=== PATIENT | female | born 1985 | race Caucasian/White ===

== ENCOUNTER 2016-12-03 15:02 | Emergency (ER) | payer OTHER ==
[2016-12-03 15:10] VITALS: BP 122/67
[2016-12-03] MEDS ORDERED: LIDOCAINE 1% 2 ML VIAL ONE (15:28)
[2016-12-03] MEDS ORDERED: LIDOCAINE 2% 10 ML MDV ONE (15:30)
--- NOTE | 2016-12-03 15:44 | ED Physician Documentation ---
PD HPI UPPER EXT INJURY - Stated complaint Stated Complaint: LT FINGER LAC - Chief complaint Chief Complaint: Laceration - History obtained from History obtained from: Patient - History of Present Illness Location: Left, Finger (index) Type of injury: Laceration Where injury occurred: Home Timing - onset: Today Timing - duration: Hours Improved by: Rest, Immobilization Worsened by: Moving, Palpating Associated symptoms: No: Weakness, Numbness, Tingling, Swelling Similar symptoms before: Has not had sx before Recently seen: Not recently seen - Additonal information Additional information: 31 y/o female cut her finger with pruning sheers and the tip is bleeding Review of Systems Constitutional: denies: Fever Respiratory: denies: Cough GI: denies: Vomiting Skin: reports: Laceration (s) Musculoskeletal: reports: Extremity pain Neurologic: denies: Generalized weakness, Focal weakness, Numbness PD PAST MEDICAL HISTORY - Past Medical History Past Medical History: Yes Cardiovascular: None Respiratory: None Neuro: None Endocrine/Autoimmune: None GI: None 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 : Other HEENT: Chronic hearing loss Psych: None Musculoskeletal: None Derm: None - Past Surgical History Past Surgical History: Yes /RUBBER COMPOUNDER: Dilation and currettage - Present Medications Home Medications: Ambulatory Orders Medication Instructions Recorded Confirmed No Known Home Medications [No 05/25/15 12/03/16 Known Home Medications] - Allergies Allergies/Adverse Reactions: Allergies Allergy/AdvReac Type Severity Reaction Status Date / Time clarithromycin [From Biaxin] Allergy Severe Nausea Verified 12/03/16 15:10 amoxicillin [Amoxicillin] AdvReac Intermediate Rash Verified 12/03/16 15:10 penicillin G AdvReac Intermediate Rash Verified 12/03/16 15:10 - Social History Does the pt smoke?: No Smoking Status: Never smoker Does the pt drink ETOH?: Yes Does the pt have substance abuse?: No - Immunizations Immunizations are current?: Yes - POLST Patient has POLST: No PD ED PE NORMAL - Vitals Vital signs reviewed: Yes (normal ) - General General: No acute distress, Well developed/nourished - HEENT HEENT: Atraumatic, PERRL, EOMI - Respiratory Respiratory: No respiratory distress - Derm Derm: Normal color, Warm and dry, No rash - Extremities Extremities: No deformity, No edema, Other (There is a 2cm flap laceration to the left index fingertip ) - Neuro Neuro: No motor deficit, No sensory deficit - Psych Psych: Normal mood, Normal affect Results - Vitals Vitals: Vital Signs - 24 hr 12/03/16 15:08 Temperature 36.7 C Heart Rate 88 Respiratory 14 Rate Blood Pressure 122/67 O2 Saturation 100 Oxygen O2 Source Room air Procedures - Laceration (location) left index Length in cm: 2 Wound type: Curved, Flap, Clean Neurovascular status: Sensory intact, Motor intact, Vascular intact Anesthesia: Lidocaine 2% Wound Preparation: Hibiclens, Irrigated copiously NS, Wound explored, To the base Skin layer closure: Nylon, Interrupted, Size #-0 - enter number (5-0), Sutures - enter # (3) Other: Patient tolerated well, No complications, Neurovascular intact, Dressing applied PD MEDICAL DECISION MAKING - ED course Complexity details: re-evaluated patient, considered differential, d/w patient ED course: 31 y/o female with a fingertip laceration is sutured. Departure - Departure Disposition: 01 Home, Self Care Clinical Impression: Finger laceration Qualifiers: Encounter type: initial encounter Qualified Code(s): S61.219A - Laceration without foreign body of unspecified finger without damage to nail, initial encounter Condition: Stable Instructions: ED Laceration Hand Follow-Up: Alejandra Velázquez MD [Primary Care Provider] -
== END 2016-12-03 15:57 | disposition home or self-care (01) ==
LOC: ED 15:02
DX: S61.211A Laceration without foreign body of left index finger without damage to nail, initial encounter (principal); W27.1XXA Contact with garden tool, initial encounter; Y93.H2 Activity, gardening and landscaping; Y92.017 Garden or yard in single-family (private) house as the place of occurrence of the external cause
CPT/HCPCS: 12001; 99282; 99283

== ENCOUNTER 2017-03-28 09:27 | Emergency (ER) | payer OTHER ==
[2017-03-28 09:37] VITALS: BP 127/85
[2017-03-28] MEDS ORDERED: DEXAMETHASONE 10 MG/ML VIAL PO STA (10:01)
--- NOTE | 2017-03-28 10:12 | ED Physician Documentation ---
PD HPI SKIN - Stated complaint Stated Complaint: ALLERGIC REACTION - Chief complaint Chief Complaint: Allergic Rx - History obtained from History obtained from: Patient - History of Present Illness Timing - onset: Yesterday Timing - duration: Days (1) Timing - details: Gradual onset, Still present Location: Bodywide Quality / character: Itchy, Discolored Associated symptoms: Headache. No: Fever, Myalgias, Joint pain, Dyspnea Contributing factors: Exposed to medication Similar symptoms before: Has not had sx before Recently seen: Not recently seen - Additional information Additional information: 31-year-old female has developed some hives last night. She has noticed that she had some itching in her scalp where she has been using some minoxidil. She had been using this for several days stopped using it when she developed a headache and she used it again last night and awoke with hives today. She is not having difficulty breathing. 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 : Other HEENT: Chronic hearing loss Psych: None Musculoskeletal: None Derm: None - Past Surgical History Past Surgical History: Yes /PRESSURE CONTROLLER: Dilation and currettage - Present Medications Home Medications: Ambulatory Orders Medication Instructions Recorded Confirmed No Known Home Medications [No 05/25/15 12/03/16 Known Home Medications] - Allergies Allergies/Adverse Reactions: Allergies Allergy/AdvReac Type Severity Reaction Status Date / Time clarithromycin [From Biaxin] Allergy Severe Nausea Verified 03/28/17 09:37 minoxidil Allergy Hives Verified 03/28/17 09:38 amoxicillin [Amoxicillin] AdvReac Intermediate Rash Verified 03/28/17 09:37 penicillin G AdvReac Intermediate Rash Verified 03/28/17 09:37 - Social History Does the pt smoke?: No Smoking Status: Never smoker Does the pt drink ETOH?: Yes Does the pt have substance abuse?: No - Immunizations Immunizations are current?: Yes - POLST Patient has POLST: No PD ED PE NORMAL - Vitals Vital signs reviewed: Yes (hypertensive mild ) - General General: Alert and oriented X 3, No acute distress, Well developed/nourished - HEENT HEENT: Atraumatic, PERRL, EOMI, Other (Over the bitemporal areas with the patient has been using the minoxidil there is a superficial plaques in the scalp. Consistent with a contact dermatitis.) - Neck Neck: Supple, no meningeal sign, No bony TTP - Cardiac Cardiac: RRR, No murmur - Respiratory Respiratory: No respiratory distress, Clear bilaterally - Derm Derm: Normal color, Warm and dry, Other (There are several urticarial spots scattered about the patient's body.) - Extremities Extremities: No deformity, No edema - Neuro Neuro: No motor deficit, No sensory deficit - Psych Psych: Normal mood, Normal affect Results - Vitals Vitals: Vital Signs - 24 hr 03/28/17 09:34 Temperature 37.1 C Heart Rate 86 Respiratory 16 Rate Blood Pressure 127/85 H O2 Saturation 100 Oxygen O2 Source Room air PD MEDICAL DECISION MAKING - ED course Complexity details: considered differential, d/w patient ED course: 31-year-old female using Rogaine for the first time has used it for several days now has developed hives. She is instructed to discontinue its use and she is given dexamethasone 10 mg orally here and she is instructed to use Aicha or Zyrtec for the next 2 days. Departure - Departure Disposition: 01 Home, Self Care Clinical Impression: Allergic urticaria Condition: Stable Instructions: ED Urticaria, ED Drug React Allergic Follow-Up: Melissa Sorensen ARNP [Primary Care Provider] - Comments: Today it does not appear that you have reacted to the minoxidil he been putting anterior scalp. Discontinue the use of the minoxidil and take Zyrtec or Aicha for the next 2 days. Expect resolution of the hives over the next 12 hours.
[2017-03-28] MEDS ORDERED: DEXAMETHASONE 10 MG/ML VIAL ONE (10:15)
[2017-03-28] MEDS ORDERED: CHERRY SYRUP 10 ML UDC PO ONE (10:15)
== END 2017-03-28 10:28 | disposition home or self-care (01) ==
LOC: ED 09:27
DX: L50.0 Allergic urticaria (principal)
CPT/HCPCS: 99283; A9270

== ENCOUNTER 2017-08-28 16:29 | Emergency (ER) | payer OTHER ==
[2017-08-28] MEDS ORDERED: TETANUS/DIPHTHERIA/PERTUSSIS 0.5 ML SYRINGE IM ONE (18:21)
[2017-08-28 18:24] VITALS: BP 119/66
--- NOTE | 2017-08-28 18:28 | ED Physician Documentation ---
History of Present Illness - Stated complaint Stated Complaint: FINGER LAC - Chief complaint Chief Complaint: Laceration - History obtained from History obtained from: Patient, Family - History of Present Illness Timing: Today Pain level max: 0 Pain level now: 0 Improved by: nothing Worsened by: nothing - Additonal information Additional information: L thumb laceration with a new knife today at home while trimming corned beef. pt is right handed. 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 : Other HEENT: Chronic hearing loss Psych: None Musculoskeletal: None Derm: None - Past Surgical History Past Surgical History: Yes /CONTRACT LAW SPECIALIST: Dilation and currettage - Present Medications Home Medications: Ambulatory Orders Medication Instructions Recorded Confirmed Multivitamin [Multiple Vitamins] 1 each PO 08/28/17 - Allergies Allergies/Adverse Reactions: Allergies Allergy/AdvReac Type Severity Reaction Status Date / Time clarithromycin [From Biaxin] Allergy Severe Nausea Verified 08/28/17 16:42 minoxidil Allergy Hives Verified 08/28/17 16:42 amoxicillin [Amoxicillin] AdvReac Intermediate Rash Verified 08/28/17 16:42 penicillin G AdvReac Intermediate Rash Verified 08/28/17 16:42 - Social History Does the pt smoke?: No Smoking Status: Never smoker Does the pt drink ETOH?: Yes Does the pt have substance abuse?: No - Immunizations Immunizations are current?: Yes - POLST Patient has POLST: No PD ED PE NORMAL - Vitals Vital signs reviewed: Yes - General General: Alert and oriented X 3, No acute distress - Derm Derm: Warm and dry - Extremities Extremities: Other (L thumb - 1cm, superficial laceration to distal phalanx on pad. NVI. tendon intact. no bleeding. ) - Neuro Neuro: Alert and oriented X 3 - Psych Psych: Normal mood, Normal affect Results - Vitals Vitals: Vital Signs - 24 hr 08/28/17 08/28/17 16:40 18:23 Temperature 37.2 C 37.9 C H Heart Rate 84 78 Respiratory 16 17 Rate Blood Pressure 122/62 119/66 O2 Saturation 98 100 Oxygen O2 Source Room air Procedures - Laceration (location) L thumb Length in cm: 1 Wound type: Linear, Clean Neurovascular status: Sensory intact, Motor intact, Vascular intact Tendon involvement: Tendon intact Wound Preparation: Irrigated copiously NS, Wound explored. No: FB identified Skin layer closure: Dermabond Other: Patient tolerated well, No complications, Neurovascular intact, Dressing applied, Tetanus UTD (tdap) Complexity: Simple PD MEDICAL DECISION MAKING - ED course Complexity details: considered differential, d/w patient ED course: Patient is a 32-year-old female who presents to the emergency department with left thumb laceration. Repaired with Dermabond. Tolerated well. Tdap given. Placed in a splint for comfort. Warnings of infection and instructions on wound care given at bedside. Also counseled on how to minimize scarring. Patient and family counseled regarding signs and symptoms for which I believe and urgent re-evaluation would be necessary. Patient with good understanding of and agreement to plan and is comfortable going home at this time This document was made in part using voice recognition software. While efforts are made to proofread this document, sound alike and grammatical errors may occur. Departure - Departure Disposition: 01 Home, Self Care Clinical Impression: Finger laceration Qualifiers: Encounter type: initial encounter Finger: thumb Damage to nail status: without damage Foreign body presence: without foreign body Laterality: left Qualified Code(s): S61.012A - Laceration without foreign body of left thumb without damage to nail, initial encounter Condition: Good Instructions: ED Laceration Hand Follow-Up: MATT GUZMAN PA-C [Primary Care Provider] - Within 1 week (for wound check) Comments: Wear the splint for the next 2-3 days. Return if you worsen. Discharge Date/Time: 08/28/17 18:59
== END 2017-08-28 18:59 | disposition home or self-care (01) ==
LOC: ED 16:29
DX: S61.012A Laceration without foreign body of left thumb without damage to nail, initial encounter (principal); W26.0XXA Contact with knife, initial encounter; Y93.G1 Activity, food preparation and clean up; Y92.000 Kitchen of unspecified non-institutional (private) residence as the place of occurrence of the external cause; Z23 Encounter for immunization
CPT/HCPCS: 12001; 90471; 99283

== ENCOUNTER 2017-11-02 12:32 | Outpatient (CLI) | payer OTHER | END 2017-11-02 12:33 | disposition critical access hospital (66) | LOC: EMS 12:32 | PROVIDERS: ATTEND Surgery | DX: S61.512A Laceration without foreign body of left wrist, initial encounter (principal); W25.XXXA Contact with sharp glass, initial encounter; Y93.E9 Activity, other interior property and clothing maintenance; Y92.009 Unspecified place in unspecified non-institutional (private) residence as the place of occurrence of the external cause | CPT/HCPCS: A0425; A0429 ==

== ENCOUNTER 2017-11-02 12:52 | Emergency (ER) | payer OTHER ==
[2017-11-02 12:54] VITALS: BP 143/68
--- NOTE | 2017-11-02 12:54 | ED Physician Documentation ---
PD HPI UPPER EXT INJURY - Stated complaint Stated Complaint: WRIST LAC - Chief complaint Chief Complaint: Laceration - History obtained from History obtained from: Patient - History of Present Illness Location: Left, Wrist Type of injury: Laceration (broken glass in trash. she had injured her finger when the cooking dish broke initially and then she put it in the trash, now cut herself on the broken piece taking the trash out so is very upsetting to her.) Where injury occurred: Home Timing - onset: Today Timing - details: Abrupt onset, Still present Worsened by: Palpating. No: Moving Associated symptoms: Numbness (she says she had some numbness in the index/ thumb but it was wrapped tightly. Tingling improving as wrapping is off.). 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: Dilation and currettage - Present Medications Home Medications: Ambulatory Orders Medication Instructions Recorded Confirmed Multivitamin [Multiple Vitamins] 1 each PO 08/28/17 - Allergies Allergies/Adverse Reactions: Allergies Allergy/AdvReac Type Severity Reaction Status Date / Time clarithromycin [From Biaxin] Allergy Severe Nausea Verified 11/02/17 12:54 minoxidil Allergy Hives Verified 11/02/17 12:54 amoxicillin [Amoxicillin] AdvReac Intermediate Rash Verified 11/02/17 12:54 penicillin G AdvReac Intermediate Rash Verified 11/02/17 12:54 - Social History Does the pt smoke?: No Smoking Status: Never smoker Does the pt drink ETOH?: Yes Does the pt have substance abuse?: No - Immunizations Immunizations are current?: Yes - POLST Patient has POLST: No PD ED PE NORMAL - Vitals Vital signs reviewed: Yes - General General: Alert and oriented X 3, Well developed/nourished, Other (anxious and tearful) - Derm Derm: Normal color, Warm and dry - Extremities Extremities: Other (left wrist anteriorly with abrasion then to laceration. No tendons involved and not deep enough to appear to go to nerves. ) - Neuro Neuro: No motor deficit, No sensory deficit Results - Vitals Vitals: Vital Signs - 24 hr 11/02/17 12:50 Temperature 37 C Heart Rate 107 H Respiratory 20 Rate Blood Pressure 143/68 H O2 Saturation 99 Oxygen O2 Source Room air Procedures - Laceration (location) left wrist Length in cm: 2.6 Wound type: Linear, Into subcut fat, Clean. No: Into muscle Neurovascular status: Motor intact, Vascular intact. No: Sensory intact (she says feelis numbness in palm and index/thumb, but has sensation to touch in those areas. Lac does not appear deep enough for nerve injury.) Tendon involvement: No: Tendon intact Anesthesia: Lidocaine 1% with epi Wound Preparation: Irrigated copiously NS, Wound explored, To the base. No: FB identified Skin layer closure: Nylon, Running, Size #-0 - enter number (5), Sutures - enter # (8) Other: Patient tolerated well, No complications, Dressing applied, Tetanus UTD Complexity: Simple PD MEDICAL DECISION MAKING - ED course Complexity details: considered differential (very anxious and tearful. The lac itslef is not too big nor deep. No deep structures involved. She tells the story of the injury as accidental. ), d/w patient Departure - Departure Disposition: 01 Home, Self Care Clinical Impression: Laceration of wrist, left Qualifiers: Encounter type: initial encounter Qualified Code(s): S61.512A - Laceration without foreign body of left wrist, initial encounter Condition: Stable Record reviewed to determine appropriate education?: Yes Instructions: ED Laceration Hand Follow-Up: MATT GUZMAN PA-C [Primary Care Provider] - Comments: It is okay to wash and shower. Clean off the wound twice a day with soap and water, or peroxide and water. Apply some antibiotic ointment to it to keep it moist. Also to watch for signs of infection such as purulence, redness or increasing pain. Return to your primary care or the ER at the specified time for suture removal. Suture removal 8-10 days. Tylenol or ibuprofen if needed for pains. Normal use of the hand is okay. Discharge Date/Time: 11/02/17 13:29
== END 2017-11-02 13:29 | disposition home or self-care (01) ==
LOC: ED 12:52
DX: S61.512A Laceration without foreign body of left wrist, initial encounter (principal); W25.XXXA Contact with sharp glass, initial encounter
CPT/HCPCS: 12001; 99282; 99283

== ENCOUNTER 2017-11-07 13:23 | Emergency (ER) | payer OTHER ==
[2017-11-07 13:29] VITALS: BP 120/67
--- NOTE | 2017-11-07 13:37 | ED Physician Documentation ---
PD HPI WOUND RECHECK - Stated complaint Stated Complaint: SUTURE REMOVAL - Chief complaint Chief Complaint: Wound - Histroy obtained from History obtained from: Patient - History of Present Illness Location: Other (L wrist) Timing - onset: How many days ago (5) Pain level max: 0 Pain level now: 0 Associated symptoms: No: Fever, Redness, Swelling, Drainage, Pain Recently seen: Emergency Dept (sutures placed 5 days ago. 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: Dilation and currettage - Present Medications Home Medications: Ambulatory Orders Medication Instructions Recorded Confirmed Multivitamin [Multiple Vitamins] 1 each PO 08/28/17 - Allergies Allergies/Adverse Reactions: Allergies Allergy/AdvReac Type Severity Reaction Status Date / Time clarithromycin [From Biaxin] Allergy Severe Nausea Verified 11/07/17 13:29 minoxidil Allergy Hives Verified 11/07/17 13:29 amoxicillin [Amoxicillin] AdvReac Intermediate Rash Verified 11/07/17 13:29 penicillin G AdvReac Intermediate Rash Verified 11/07/17 13:29 - Social History Does the pt smoke?: No Smoking Status: Never smoker Does the pt drink ETOH?: Yes Does the pt have substance abuse?: No - Immunizations Immunizations are current?: Yes - POLST Patient has POLST: No PD ED PE NORMAL - Vitals Vital signs reviewed: Yes - General General: Alert and oriented X 3, No acute distress - Derm Derm: Warm and dry - Extremities Extremities: Other (L wrist - well healed laceration. Sutures in place without signs of infection. ) - Neuro Neuro: Alert and oriented X 3 Results - Vitals Vitals: Vital Signs - 24 hr 11/07/17 13:27 Temperature 36.4 C L Heart Rate 66 Respiratory 16 Rate Blood Pressure 120/67 O2 Saturation 100 Oxygen O2 Source Room air PD MEDICAL DECISION MAKING - ED course Complexity details: reviewed old records (last ED visit), considered differential, d/w patient ED course: Patient is a 32-year-old female who presents to the emergency department requesting suture removal from a laceration several days ago. Appears well- healed. Sutures are removed. No signs of infection. Possible slight wound dehiscence, so dermabond applied for extra support to the healing tissue. Patient counseled regarding signs and symptoms for which I believe and urgent re -evaluation would be necessary. Patient with good understanding of and agreement to plan and is comfortable going home at this time This document was made in part using voice recognition software. While efforts are made to proofread this document, sound alike and grammatical errors may occur. Departure - Departure Disposition: 01 Home, Self Care Clinical Impression: Visit for suture removal Condition: Good Instructions: ED Wound Check Sutr Remove No Infec Follow-Up: MATT GUZMAN PA-C [Primary Care Provider] - As Needed Comments: Keep the wound clean. Return if you worsen. Discharge Date/Time: 11/07/17 13:47
== END 2017-11-07 13:47 | disposition home or self-care (01) ==
LOC: ED 13:23
DX: S61.512D Laceration without foreign body of left wrist, subsequent encounter (principal); X58.XXXD Exposure to other specified factors, subsequent encounter
CPT/HCPCS: 99282

== ENCOUNTER 2018-11-13 08:59 | Emergency (ER) | payer OTHER ==
[2018-11-13 09:08] VITALS: BP 109/80
[2018-11-13] MEDS ORDERED: predniSONE 20 MG TABLET PO STA (09:21)
--- NOTE | 2018-11-13 09:27 | ED Physician Documentation ---
PD HPI SKIN - Stated complaint Stated Complaint: RASH ALL OVER - Chief complaint Chief Complaint: Wound - History obtained from History obtained from: Patient - History of Present Illness Timing - onset: Yesterday Timing - duration: Days (2) Timing - details: Gradual onset Pain level max: 0 Pain level now: 0 Location: Bodywide Quality / character: Itchy Improved by: Other (aicha) Worsened by (comment): COMMENT (nothing) Associated symptoms: No: Fever, Myalgias, Joint pain, Headache, Facial swelling, Dyspnea, Abd pain, N/V/D, Urinary sx Contributing factors: Other (sunscreen) Recently seen: Not recently seen Review of Systems Constitutional: denies: Fever, Chills Throat: denies: Sore throat Cardiac: denies: Chest pain / pressure Respiratory: denies: Dyspnea, Cough GI: denies: Nausea, Vomiting, Diarrhea : denies: Now EGA PD PAST MEDICAL HISTORY - Past Medical History Cardiovascular: None Respiratory: None Endocrine/Autoimmune: None GI: None 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 : Other HEENT: Chronic hearing loss Psych: None Musculoskeletal: None Derm: None - Past Surgical History Past Surgical History: Yes /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: Dilation and currettage - Present Medications Home Medications: Ambulatory Orders Medication Instructions Recorded Confirmed Multivitamin [Multiple Vitamins] 1 each PO 08/28/17 Fexofenadine HCl [Aicha Allergy] 60 mg PO 11/13/18 Fluticasone [Flonase] 11/13/18 predniSONE [Prednisone] 40 mg PO DAILY #10 tablet 11/13/18 - Allergies Allergies/Adverse Reactions: Allergies Allergy/AdvReac Type Severity Reaction Status Date / Time clarithromycin [From Biaxin] Allergy Severe Nausea Verified 11/13/18 09:08 minoxidil Allergy Hives Verified 11/13/18 09:08 amoxicillin [Amoxicillin] AdvReac Intermediate Rash Verified 11/13/18 09:08 penicillin G AdvReac Intermediate Rash Verified 11/13/18 09:08 - Social History Does the pt smoke?: No Smoking Status: Never smoker Does the pt drink ETOH?: Yes Does the pt have substance abuse?: No - Immunizations Immunizations are current?: Yes - POLST Patient has POLST: No PD ED PE NORMAL - Vitals Vital signs reviewed: Yes - General General: Alert and oriented X 3, No acute distress - HEENT HEENT: Moist mucous membranes - Neck Neck: Supple, no meningeal sign - Derm Derm: Warm and dry, Other (Diffuse urticarial exanthem over the upper extremities, back, neck and face. Blanches easily) - Neuro Neuro: Alert and oriented X 3 - Psych Psych: Normal mood, Normal affect Results - Vitals Vitals: Vital Signs - 24 hr 11/13/18 09:04 Temperature 36.6 C Heart Rate 70 Respiratory 16 Rate Blood Pressure 109/80 O2 Saturation 100 Oxygen O2 Source Room air PD MEDICAL DECISION MAKING - ED course Complexity details: considered differential, d/w patient ED course: 33-year-old female with what appears to be an allergic reaction to sunscreen. Will place on prednisone and follow-up with her doctor. She is well-appearing, nontoxic. Afebrile. No hypoxia. No respiratory distress. No stridor or wheezing. Patient counseled regarding signs and symptoms for which I believe and urgent re-evaluation would be necessary. Patient with good understanding of and agreement to plan and is comfortable going home at this time This document was made in part using voice recognition software. While efforts are made to proofread this document, sound alike and grammatical errors may occur. Departure - Departure Disposition: 01 Home, Self Care Clinical Impression: Dermatitis Condition: Good Instructions: ED Dermatitis Contact Follow-Up: ANITRA PHILLIPS [Primary Care Provider] - Within 1 week Prescriptions: predniSONE [Prednisone] 40 mg PO DAILY #10 tablet Comments: Use the steroids as prescribed. Return if you worsen. Follow-up with your doctor for further care.
== END 2018-11-13 09:51 | disposition home or self-care (01) ==
LOC: ED 08:59
DX: L30.9 Dermatitis, unspecified (principal)
CPT/HCPCS: 99283; J7512

== ENCOUNTER 2018-11-14 07:27 | Emergency (ER) | payer OTHER ==
[2018-11-14 07:32] VITALS: BP 120/83
[2018-11-14] MEDS ORDERED: hydrOXYzine PAMOATE 25 MG CAPSULE PO STA (07:41)
--- NOTE | 2018-11-14 07:46 | ED Physician Documentation ---
PD HPI SKIN - Stated complaint Stated Complaint: RASH ALL OVER - Chief complaint Chief Complaint: Wound - History obtained from History obtained from: Patient - History of Present Illness Timing - onset: Other (few days ago) Timing - duration: Days Timing - details: Gradual onset Location: Chest, Back, RUE, LUE, RLE, LLE, Bodywide Quality / character: Itchy, Raised, Other (red) Improved by: Other (nothing, hasn't tried benadryl, is taking prednisone) Associated symptoms: No: Fever, Myalgias, Joint pain, Headache, Facial swelling, Dyspnea, Abd pain, N/V/D Contributing factors: Exposed to soap / lotion (sunscreen) Similar symptoms before: No diagnosis Recently seen: Emergency Dept (yesterday for the same symptoms and was given prednisone) Review of Systems Ten Systems: 10 systems reviewed and negative Constitutional: denies: Fever Throat: reports: Other (reports itchy sensation in throat, no swelling). denies: Sore throat Respiratory: denies: Dyspnea, Cough, Wheezing GI: denies: Abdominal Pain, Nausea, Vomiting Skin: reports: Rash (itching) Musculoskeletal: denies: Joint pain PD PAST MEDICAL HISTORY - Past Medical History Past Medical History: Yes Cardiovascular: None Respiratory: None Endocrine/Autoimmune: None GI: None READING AIDE: None : Other HEENT: Chronic hearing loss Psych: None Musculoskeletal: None Derm: None - Past Surgical History Past Surgical History: Yes /READING AIDE: Dilation and currettage - Present Medications Home Medications: Ambulatory Orders Medication Instructions Recorded Confirmed Multivitamin [Multiple Vitamins] 1 each PO 08/28/17 Fexofenadine HCl [Aicha Allergy] 60 mg PO 11/13/18 Fluticasone [Flonase] 11/13/18 predniSONE [Prednisone] 40 mg PO DAILY #10 tablet 11/13/18 Triamcinolone 0.5% Cream [Kenalog 10 gm TOP BID 5 Days #60 g 11/14/18 0.5% Cream] hydrOXYzine pamoate [Hydroxyzine 25 mg PO Q4HR PRN 5 Days #20 11/14/18 Pamoate] capsule - Allergies Allergies/Adverse Reactions: Allergies Allergy/AdvReac Type Severity Reaction Status Date / Time clarithromycin [From Biaxin] Allergy Severe Nausea Verified 11/14/18 07:32 minoxidil Allergy Hives Verified 11/14/18 07:32 amoxicillin [Amoxicillin] AdvReac Intermediate Rash Verified 11/14/18 07:32 penicillin G AdvReac Intermediate Rash Verified 11/14/18 07:32 - Social History Does the pt smoke?: No Smoking Status: Never smoker Does the pt drink ETOH?: Yes Does the pt have substance abuse?: No - Immunizations Immunizations are current?: Yes - POLST Patient has POLST: No PD ED PE NORMAL - Vitals Vital signs reviewed: Yes - General General: Alert and oriented X 3 - HEENT HEENT: Atraumatic, Moist mucous membranes, Pharynx benign, Other (no swelling) - Neck Neck: Supple, no meningeal sign - Cardiac Cardiac: RRR - Respiratory Respiratory: No respiratory distress - Abdomen Abdomen: Non distended - Female Female : Deferred - Rectal Rectal: Deferred - Derm Derm: Warm and dry, Other (diffuse nonspecific erythematous rash with areas of possible urticaria, blanching, not sloughing) - Extremities Extremities: No deformity, No tenderness to palpate - Neuro Neuro: Alert and oriented X 3 Eye Opening: Spontaneous Motor: Obeys Commands Verbal: Oriented GCS Score: 15 Results - Vitals Vitals: Vital Signs - 24 hr 11/14/18 11/14/18 07:30 07:51 Temperature 37.0 C Heart Rate 91 Respiratory 18 18 Rate Blood Pressure 120/83 H O2 Saturation 100 Oxygen O2 Source Room air PD MEDICAL DECISION MAKING - ED course Complexity details: reviewed old records, considered differential, d/w patient ED course: 33 y/o F well appearing with an itchy nonspecific red scattered rash on her trunk and legs/arms, mild appearing, blanching. Pt with no fever, no angioedema, no respiratory or GI symptoms to suggest anaphylaxis. Possibly this is due to a recent use of a new sunscreen. Advised pt to try benadryl or prescribed atarax for symptoms of itching as well as triamcinolone cream. Departure - Departure Disposition: 01 Home, Self Care Clinical Impression: Urticaria, Rash and nonspecific skin eruption Condition: Stable Record reviewed to determine appropriate education?: Yes Follow-Up: ANITRA PHILLIPS [Primary Care Provider] - As Needed Prescriptions: hydrOXYzine pamoate [Hydroxyzine Pamoate] 25 mg PO Q4HR PRN 5 Days #20 capsule PRN Reason: Itching Triamcinolone 0.5% Cream [Kenalog 0.5% Cream] 10 gm TOP BID 5 Days #60 g Print Language: Luxembourger Comments: Follow up with your primary doctor if this is not better in a week. Take oral benadryl or the prescribed hydroxyzine every 4-6 hours as needed for itching. Apply the steroid cream (triamcinolone) twice a day. You can also purchase OTC benadryl gel and apply that as needed for severe itching. Return to the ED if any difficulty breathing, swallowing occurs as this could be a sign of angioedema or anaphylaxis. Discharge Date/Time: 11/14/18 07:56
== END 2018-11-14 07:56 | disposition home or self-care (01) ==
LOC: ED 07:27
DX: R21 Rash and other nonspecific skin eruption (principal); L50.9 Urticaria, unspecified
CPT/HCPCS: 99283; A9270

== ENCOUNTER 2019-04-04 14:12 | Emergency (ER) | payer OTHER ==
[2019-04-04 14:31] VITALS: BP 119/73
--- NOTE | 2019-04-04 15:03 | ED Physician Documentation ---
PD HPI UPPER EXT INJURY - Stated complaint Stated Complaint: LEFT WRIST PX - Chief complaint Chief Complaint: Ext Problem - History obtained from History obtained from: Patient - History of Present Illness Location: Left, Wrist Pain level max: 5 Pain level now: 3 Improved by: Rest, Ice, Immobilization Worsened by: Moving, Palpating Associated symptoms: Swelling. No: Weakness, Numbness, Tingling Recently seen: Not recently seen - Additonal information Additional information: Patient is right-handed. She was walking the dog today, holding the leash in the left hand when the dog took off. She states that she fell landing on her left knee and left wrist. Has pain and swelling to the wrist now. Worse with movement and better with rest. No head injury. No neck or back pain. Review of Systems Constitutional: denies: Fever : denies: Now EGA Skin: denies: Rash Musculoskeletal: denies: Neck pain, Back pain Neurologic: denies: Focal weakness, Numbness, Headache PD PAST MEDICAL HISTORY - Past Medical History Cardiovascular: None Respiratory: None Endocrine/Autoimmune: None GI: None PATHOLOGIST: None : Other HEENT: Chronic hearing loss Psych: None Musculoskeletal: None Derm: None - Past Surgical History Past Surgical History: Yes /PATHOLOGIST: Dilation and currettage - Present Medications Home Medications: Ambulatory Orders Medication Instructions Recorded Confirmed Multivitamin [Multiple Vitamins] 1 each PO 08/28/17 Fexofenadine HCl [Aicha Allergy] 60 mg PO 11/13/18 Fluticasone [Flonase] 11/13/18 predniSONE [Prednisone] 40 mg PO DAILY #10 tablet 11/13/18 Triamcinolone 0.5% Cream [Kenalog 10 gm TOP BID 5 Days #60 g 11/14/18 0.5% Cream] hydrOXYzine pamoate [Hydroxyzine 25 mg PO Q4HR PRN 5 Days #20 11/14/18 Pamoate] capsule - Allergies Allergies/Adverse Reactions: Allergies Allergy/AdvReac Type Severity Reaction Status Date / Time clarithromycin [From Biaxin] Allergy Severe Nausea Verified 04/04/19 14:27 minoxidil Allergy Hives Verified 04/04/19 14:27 amoxicillin [Amoxicillin] AdvReac Intermediate Rash Verified 04/04/19 14:27 penicillin G AdvReac Intermediate Rash Verified 04/04/19 14:27 - Social History Does the pt smoke?: No Smoking Status: Never smoker Does the pt drink ETOH?: Yes Does the pt have substance abuse?: No - Immunizations Immunizations are current?: Yes - POLST Patient has POLST: No PD ED PE NORMAL - Vitals Vital signs reviewed: Yes - General General: Alert and oriented X 3, No acute distress - HEENT HEENT: Moist mucous membranes - Neck Neck: Supple, no meningeal sign - Derm Derm: Warm and dry - Extremities Extremities: Other (L wrist - Tender to palpation over the radial styloid. No tenderness over the anatomical snuffbox. Mild swelling at the site. No pain with range of motion of the thumb. There is pain with movement of the wrist. Mostly active range of motion. Minimal pain with passive range of motion. Neurovascular intact) - Neuro Neuro: Alert and oriented X 3 Results - Vitals Vitals: Vital Signs - 24 hr 04/04/19 14:27 Temperature 37 C Heart Rate 81 Respiratory 18 Rate Blood Pressure 119/73 O2 Saturation 100 Oxygen O2 Source Room air - Rads (name of study) Left wrist x-ray Radiology: Prelim report reviewed, EMP read contemporaneously, See rad report (Normal) PD MEDICAL DECISION MAKING - ED course Complexity details: reviewed results, re-evaluated patient, considered differential, d/w patient ED course: Patient with a left wrist sprain. No evidence of scaphoid injury. She has a Velcro brace with her that was applied. Encouraged early range of motion and stretching as well. Patient counseled regarding signs and symptoms for which I believe and urgent re-evaluation would be necessary. Patient with good understanding of and agreement to plan and is comfortable going home at this time This document was made in part using voice recognition software. While efforts are made to proofread this document, sound alike and grammatical errors may occur. Departure - Departure Disposition: 01 Home, Self Care Clinical Impression: Left wrist sprain Qualifiers: Encounter type: initial encounter Qualified Code(s): S63.502A - Unspecified sprain of left wrist, initial encounter Condition: Good Instructions: ED Sprain Wrist Follow-Up: Your,doctor in 1 week [Other] Comments: Your x-ray does not show any acute abnormalities today. Return if you worsen. Continue to gently stretch and move the wrist. You can use Tylenol or Motrin as needed for pain. Discharge Date/Time: 04/04/19 15:32
--- NOTE | 2019-04-04 15:25 | XRAY Report ---
Reason: fell on wrist Procedure Date: 04/04/2019 Accession Number: [id number] / [id number] Procedure: XR - Wrist 3 View LT CPT Code: FULL RESULT: EXAM: LEFT WRIST RADIOGRAPHY EXAM DATE: 04/04/2019 03:01 PM. CLINICAL HISTORY: Trauma. COMPARISON: None. TECHNIQUE: 3 views. FINDINGS: Bones: No acute fracture. No suspicious osseous lesion. Joints: No significant joint space narrowing. No dislocation. Other: None. IMPRESSION: No acute osseous abnormality. [facility]
== END 2019-04-04 15:32 | disposition home or self-care (01) ==
LOC: ED 14:12
DX: S63.502A Unspecified sprain of left wrist, initial encounter (principal); W01.0XXA Fall on same level from slipping, tripping and stumbling without subsequent striking against object, initial encounter; Y93.K1 Activity, walking an animal; M25.562 Pain in left knee
CPT/HCPCS: 99282; 99283